=== PATIENT | male | born 1945 | race African-American/Black ===

== ENCOUNTER → 2020-03-18 | Day surgery (SDC) | payer MEDICARE, OTHER ==
[~2020-03-18] MED LIST: ACTOS15 MG PO; AMARYL1 MG PO; ARTIFICIAL TEA1 EACH; ASA81BEC PO; ASPIRIN325 PO; ATORVASTATIN CA40 MG PO; AXIRON90 ML PO; BETIMOL5 ML OPHTHALMIC; BYSTOLIC 5 MG5 M1 PO; CALCITRIOL0.25 MCG PO; CHLORTHALIDONE25 MG PO; COMBIGAN EYE DR10 ML OPHTHALMIC; COSOPT OCUMETER10 M1; COZAAR 50 MG TA50 M1 PO; CRESTOR20 MG PO; DEMADEX20 MG PO; EFFIENT10 MG PO; EPOGEN10000 UNIT INJECTION; FISH OIL 1,0001 EAC5 PO; GLUCOSAMIN-CHO1 EACH PO; HYDRALAZINE 2525 MG PO; HYZAAR 100-12.1 EACH PO; IRON PO; IRON325 M1 PO; JANUMET 50-1,01 EACH PO; LOPERAMIDE 2 MG2 M1 PO; LORCET 5-325 M1 EACH PO; LUMIGAN2.5 M1; MUCINEX600 MG PO; MULTIVITAMINS1 EAC7 PO; NORCO 5-325 TA1 EAC2 PO; RENAPLEX TABLE1 EACH PO; RENVELA800 MG PO; SIMBRINZA 1%-0.28 ML; SODIUM BICARBO650 M3 PO; SODIUM BICARBONATE PO; TOPROL XL50 MG PO; TRAVATAN Z2.5 ML; VITAMIN B-121000 MC2 PO; VITAMIN C120 GM PO; VITAMIN E100 M1 PO; VYTORIN 10-201 EACH PO; XALATAN2.5 ML OPHTHALMIC; ZOFRAN ODT4 MG PO
--- NOTE | ~2020-03-18 | OP ---
[facility] [address] [place] [address] OPERATIVE REPORT Name: RICK MARIANO Room: [facility].#: [id number] Admission: 03/18/20 Attend Phys: Mann Gomez Discharge: Date of : 43 Report #: [id number] THIS REPORT FOR: //name// cc: Kirsten Guerrero MD, Cabot L. MD ~ CC: Kirsten Gomez DATE OF SERVICE: 03/18/2020 PREOPERATIVE DIAGNOSIS: End-stage renal disease. POSTOPERATIVE DIAGNOSIS: End-stage renal disease. OPERATION: 1. Laparoscopic placement of tunneled intraperitoneal catheter. 2. Laparoscopic omentopexy. SURGEON: Mann Gomez MD. ANESTHESIA: General. ESTIMATED BLOOD LOSS: Minimal. SPECIMEN: None. DESCRIPTION OF PROCEDURE: After informed consent was obtained, the patient was brought to the operating room and placed supine. SCDs were placed and working, preoperative antibiotics were administered, general anesthesia was induced. The abdomen was prepped and draped in the usual sterile fashion. A 5 mm incision was made in the left upper quadrant. A 5 mm trocar was placed under direct vision. Pneumoperitoneum was established. A left-sided 5 mm trocar was placed. The omentum was then grasped and brought out to the right upper quadrant. A 2-0 Vicryl suture was placed through the skin into the omentum and then back out through the skin, thereby completing the omentopexy after it was tied down. The 8 mm trocar was placed in the left rectus sheath above the umbilicus. Catheter was placed through the 8 mm trocar as the trocar was pulled away. Internal cuff was then placed into the rectus sheath under direct vision with the laparoscope. Catheter was then tunneled to the left upper quadrant of the abdomen. The ports were then removed under direct vision. The catheter flushed easily with 750 mL of heparinized saline. It drained 250 mL very well. The skin was then closed with 4-0 Monocryl. Incisions were dressed with Steri-Strips and gauze. The catheter was secured with Steri-Strips and [place] [address] OPERATIVE REPORT Name: RICK MARIANO Room: [facility]#: [id number] Admission: 03/18/20 Attend Phys: Mann Gomez Discharge: Date of : 43 Report #: [id number] COMPLICATIONS: None. DISPOSITION: The patient was taken to recovery in satisfactory condition. By: [id number] Gomez MD /ana lilia
[2020-03-18 08:18] LABS: HEMATOCRIT 35.8 % (42.0-52.0); HEMOGLOBIN 11.5 gm/dL (14.0-18.0); MCH 28.5 pg (26.0-34.0); MCHC 32.2 g/dL (28.0-37.0); MCV 88.5 fL (80.0-100.0); MPV 8.8 fl. (7.2-11.1); RBC 4.04 mil/uL (4.50-6.00); RDW-CV 16.2 % (10.5-14.5); WBC 10.5 thou/uL (4.0-11.0)
[2020-03-18 08:25] LABS: CALCIUM 8.5 mg/dL (8.5-10.1); CREATININE 5.6 mg/dL (0.6-1.3); POTASSIUM 4.8 mmol/L (3.5-5.1)
--- NOTE | 2020-03-18 09:55 | EKG ---
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 Person: : 1945 Requested By: Mann Gomez Order Number: [id number] Reading MD: Ayden Reveles Measurements Intervals [place] Rate: 64 P: 63 WV: 143 QRS: -42 QRSD: 109 T: 81 QT: 451 QTc: 466 Interpretive Statements Sinus rhythm Left anterior fascicular block Abnormal R-wave progression, late transition Left ventricular hypertrophy ST elevation, consider early repolarization No previous ECG available for comparison Electronically Signed On 03-18-2020 9:55:26 CDT by Ayden Reveles [email or web address] <ELECTRONICALLY SIGNED> By: Ayden Reveles MD, FACC 03/18/20 0955 9 9 Ayden Reveles MD, [facility] /EPI
== END | disposition home or self-care (01) ==
LOC: M.SUR 07:09
PROVIDERS: ATTEND Surgery
DX: I12.0 Hypertensive chronic kidney disease with stage 5 chronic kidney disease or end stage renal disease (principal); N18.6 End stage renal disease; E11.22 Type 2 diabetes mellitus with diabetic chronic kidney disease; E78.5 Hyperlipidemia, unspecified; Z99.2 Dependence on renal dialysis; Z20.828 Contact with and (suspected) exposure to other viral communicable diseases; Z79.899 Other long term (current) drug therapy; Z98.890 Other specified postprocedural states